=== PATIENT | male | born 1995 | race Caucasian/White ===

== ENCOUNTER 2017-06-18 12:30 | Emergency (ER) | payer OTHER, BC ==
[~2017-06-18] VITALS: Ht 172.7 cm; Wt 68.8 kg
[2017-06-18] MEDS ORDERED: MOBIC7.5 MG PO (14:08)
[2017-06-18] MEDS ORDERED: FLEXERIL5 MG PO (14:08)
[2017-06-18 14:34] VITALS: BP 132/86
== END 2017-06-18 14:38 | disposition home or self-care (01) ==
LOC: EME 12:30
DX: M54.5 Low back pain (principal); F17.200 Nicotine dependence, unspecified, uncomplicated
CPT/HCPCS: 99281; 99283